=== PATIENT | female | born 1990 | race Caucasian/White ===

== ENCOUNTER 2017-06-01 22:06 | Emergency (ER) | payer OTHER ==
[~2017-06-01] VITALS: Ht 170.2 cm; Wt 96.0 kg
[2017-06-01 23:31] VITALS: BP 141/87
[2017-06-02] MEDS ORDERED: DEXAMETHASONE 4 MG TABLET ONE (00:37)
[2017-06-02] MEDS ORDERED: DEXAMETHASONE 4 MG TABLET PO ONE (01:00)
== END 2017-06-02 00:45 | disposition home or self-care (01) ==
LOC: ED 06-02 00:27
DX: M25.561 Pain in right knee (principal); J01.00 Acute maxillary sinusitis, unspecified; J00 Acute nasopharyngitis [common cold]
CPT/HCPCS: 71046; 99284